=== PATIENT | female | born 1995 | race Caucasian/White ===

== ENCOUNTER 2020-08-27 06:34 | Day surgery (SDC) | payer BC ==
[~2020-08-27 06:34] MED LIST: Lactated Ringers 1,000 ML IV SCH
[2020-08-27] MEDS ORDERED: Scopolamine 1.5 MG Transdermal Patch ONE (07:05)
[2020-08-27] MEDS ORDERED: Propofol 200 MG/20 ML SDV ONE (07:06)
[2020-08-27] MEDS ORDERED: Lidocaine 2% 5 ML SDV ONE (07:09)
--- NOTE | 2020-08-27 07:26 | PCM.PREANE ---
Preanesthetic Assessment - Anesthesia/Transfusion/Family Hx Anesthesia History: Prior Anesthesia Without Reaction Transfusion History: No Prior Transfusion(s) - Review of Systems General: No Symptoms Pulmonary: No Symptoms Cardiovascular: No Symptoms Gastrointestinal: No Symptoms Neurological: No Symptoms Other: Reports: None - Physical Assessment NPO Status Date: 08/27/20 NPO Status Time: 00:00 Vital Signs: Last Vital Signs Temp 97.5 F 08/27/20 06:49 Pulse 88 08/27/20 06:49 Resp 16 08/27/20 06:49 BP 150/89 H 08/27/20 06:49 Pulse Ox 97 08/27/20 06:49 Height: 5 ft 7 in Weight: 271 lb ASA Class: 3 Mental Status: Alert & Oriented x3 Airway Class: Mallampati = 3 Dentition: Reports: Normal Dentition Thyro-Mental Finger Breadths: 3 Mouth Opening Finger Breadths: 3 ROM/Head Extension: Full Lungs: Clear to Auscultation, Normal Respiratory Effort Cardiovascular: Regular Rate, Regular Rhythm - Lab Values: Laboratory Last Values Urine HCG, Qual NEGATIVE (NEGATIVE) 08/27/20 06:50 - Allergies Allergies/Adverse Reactions: Allergies Allergy/AdvReac Type Severity Reaction Status Date / Time banana Allergy Airway Verified 08/21/20 13:30 Tightness cat dander Allergy Airway Verified 08/21/20 13:30 Tightness lactose Allergy Abdominal Verified 08/21/20 13:30 Pain Latex, Natural Rubber Allergy Rash Verified 08/21/20 13:30 mold Allergy Airway Verified 08/21/20 13:30 Tightness - Acknowledgements Anesthesia Type Planned: General Anesthesia Pt an Appropriate Candidate for the Planned Anesthesia: Yes Alternatives and Risks of Anesthesia Discussed w Pt/Guardian: Yes Pt/Guardian Understands and Agrees with Anesthesia Plan: Yes PreAnesthesia Questionnaire HEENT History: Reports: Other (See Below) Other HEENT History: wears glasses, has upper removable retainer that she only wears at night Cardiovascular History: Reports: None Respiratory History: Reports: Asthma Other Respiratory History: 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) Gastrointestinal History: Reports: Other (See Below) Other Gastrointestinal History: dysphagia to solids and liquids Genitourinary History: Reports: None [employer] History: Reports: None Musculoskeletal History: Reports: None Neurological History: Reports: Other (See Below) Other Neuro History: hx of motion sickness Psychiatric History: Reports: None Endocrine/Metabolic History: Reports: Obesity/BMI 30+ Hematologic History: Reports: None Immunologic History: Reports: None Oncologic (Cancer) History: Reports: None Dermatologic History: Reports: None - Past Surgical History Head Surgeries/Procedures: Reports: None HEENT Surgical History: Reports: Adenoidectomy, Oral Surgery, Tonsillectomy Other HEENT Surgeries/Procedures: wisdom teeth removal Cardiovascular Surgical History: Reports: None Respiratory Surgical History: Reports: None GI Surgical History: Reports: None Female Surgical History: Reports: None Endocrine Surgical History: Reports: None Neurological Surgical History: Reports: None Musculoskeletal Surgical History: Reports: None Oncologic Surgical History: Reports: None - SUBSTANCE USE Tobacco Use Status *Q: Never Tobacco User Recreational Drug Use History: No - HOME MEDS Home Medications: Home Meds Albuterol Sulfate [Albuterol Sulfate HFA] 1 - 2 puff INH Q4H PRN 08/21/20 [History] Levonorgestrel/Ethin.estradiol [Falmina-28 Tablet] 1 tab PO DAILY 08/21/20 [History] Montelukast Sodium 10 mg PO DAILY 08/21/20 [History] - CURRENT (IN HOUSE) MEDS Current Meds: Current Medications Lactated Ringer's (Ringers, Lactated) 1,000 mls @ 125 mls/hr IV ASDIRECTED [facility] Last Admin: 08/27/20 06:55 Dose: 125 mls/hr Documented by: Discontinued Medications Lidocaine (Lidocaine 2% 5 Ml Sdv) Confirm Administered Dose 5 ml .ROUTE .STK-MED ONE Stop: 08/27/20 07:10 Propofol (Propofol 200 Mg/20 Ml Sdv) Confirm Administered Dose 400 mg .ROUTE .STK-MED ONE Stop: 08/27/20 07:07 Scopolamine (Scopolamine 1.5 Mg Transdermal Patch) Confirm Administered Dose 1.5 mg .ROUTE .STK-MED ONE Stop: 08/27/20 07:06
--- NOTE | 2020-08-27 08:12 | PCM.OPNOTE ---
- General Post-Op/Procedure Note Date of Surgery/Procedure: 08/27/20 Operative Procedure(s): Esophagogastroduodenoscopy with gastric and esophageal biopsies Pre Op Diagnosis: Dysphagia. Gastroesophageal reflux disease with frequent regurgitation. Post-Op Diagnosis: Mild to moderate chronic gastritis. Distal esophagitis. Anesthesia Technique: MAC (ASA III) Primary Surgeon: Braden Ruiz Condition: Good Free Text/Narrative:: DICTATION [id number] CPT CODE [id number]
[2020-08-27] MEDS ORDERED: Lactated Ringers 1,000 ML IV SCH (08:15)
--- NOTE | 2020-08-27 08:15 | PCM.POSTAN ---
POST ANESTHESIA ASSESSMENT - MENTAL STATUS Mental Status: Alert, Oriented - VITAL SIGNS Vital Signs: Last Vital Signs Temp 97.5 F 08/27/20 06:49 Pulse 88 08/27/20 06:49 Resp 16 08/27/20 06:49 BP 150/89 H 08/27/20 06:49 Pulse Ox 97 08/27/20 06:49 - RESPIRATORY Respiratory Status: Respiratory Rate WNL, Airway Patent, O2 Saturation Stable - CARDIOVASCULAR CV Status: Pulse Rate WNL, Blood Pressure Stable - GASTROINTESTINAL GI Status: No Symptoms - POST OP HYDRATION Hydration Status: Adequate & Stable
--- NOTE | 2020-08-27 08:15 | PCM48HPAN ---
Post Anesthesia Note - EVALUATION WITHIN 48HRS OF ANESTHETIC Vital Signs in Normal Range: Yes Patient Participated in Evaluation: Yes Respiratory Function Stable: Yes Airway Patent: Yes Cardiovascular Function Stable: Yes Hydration Status Stable: Yes Pain Control Satisfactory: Yes Nausea and Vomiting Control Satisfactory: Yes Mental Status Recovered: Yes Vital Signs: Last Vital Signs Temp 97.5 F 08/27/20 06:49 Pulse 88 08/27/20 06:49 Resp 16 08/27/20 06:49 BP 150/89 H 08/27/20 06:49 Pulse Ox 97 08/27/20 06:49
--- NOTE | 2020-08-27 14:30 | OR ---
SURGEON: Braden Ruiz M.D. DATE OF PROCEDURE: 08/27/2020 OPERATION PERFORMED: Esophagogastroduodenoscopy with gastric and esophageal biopsies. PRIMARY SURGEON: Braden Ruiz M.D. ANESTHESIA: MAC. ASA CLASSIFICATION: III. PREOPERATIVE DIAGNOSES: 1. Dysphagia. 2. Chronic gastroesophageal reflux disease. 3. Choking on food. POSTOPERATIVE DIAGNOSES: 1. [id number] chronic gastritis. 2. Mild distal esophagitis. DESCRIPTION OF PROCEDURE: The patient was taken to the endoscopy room and positioned on the endoscopy table in the supine position. Time-out was called for appropriate identification of the patient and procedure. Monitored anesthesia care was provided. The gastroscope was inserted through the bite block and advanced without difficulty through the oropharynx and esophagus into the stomach, subsequently into the duodenum. Examination was now carried out in a retrograde fashion. The duodenum showed no acute inflammatory changes or ulcerations. The stomach showed [id number] gastritis. Antral biopsies were obtained to look for the presence of Helicobacter pylori. The gastroscope was then retroflexed to visualize the proximal stomach. No tumors, polyps, or ulcers were noted. The gastroscope was then straightened and slowly withdrawn. The patient had some mild esophagitis, and biopsies of the distal esophagus were obtained. The esophagus itself demonstrated good contractility. No mid or proximal lesions were identified. Specifically, no stricture was identified. As the gastroscope was then withdrawn, the vocal cords were briefly visualized and noted to move symmetrically. The gastroscope was then removed with the patient having tolerated the procedure well. She was taken to recovery room in stable condition. DEANGELO / DESI /[id number]
== END 2020-08-27 08:49 | disposition home or self-care (01) ==
LOC: MW.SDS 06:34
PROVIDERS: ATTEND Surgery
DX: K29.70 Gastritis, unspecified, without bleeding (principal); K21.00 Gastro-esophageal reflux disease with esophagitis, without bleeding; K21.9 Gastro-esophageal reflux disease without esophagitis; T17.928A Food in respiratory tract, part unspecified causing other injury, initial encounter; E73.9 Lactose intolerance, unspecified; J45.909 Unspecified asthma, uncomplicated; Z79.899 Other long term (current) drug therapy; Z91.048 Other nonmedicinal substance allergy status; Z98.890 Other specified postprocedural states
CPT/HCPCS: 43239; 81025; J2704; J7120; 00731; 88305; 88342

== ENCOUNTER 2021-03-03 12:12 | Emergency (ER) | payer BC ==
[2021-03-03 13:54] LABS: CORONAVIRUS COVID-19 NAA POSITIVE (NEGATIVE); INFLUENZA A NAA NEGATIVE (NEGATIVE); INFLUENZA B NAA NEGATIVE (NEGATIVE)
== END 2021-03-03 14:05 | disposition home or self-care (01) ==
LOC: MW.ED 12:12
DX: U07.1 COVID-19 (principal); J45.909 Unspecified asthma, uncomplicated; E66.9 Obesity, unspecified; Z68.41 Body mass index [BMI] 40.0-44.9, adult; Z91.018 Allergy to other foods; Z91.048 Other nonmedicinal substance allergy status; Z91.011 Allergy to milk products; Z91.040 Latex allergy status; Z79.899 Other long term (current) drug therapy
CPT/HCPCS: 0240U; 87651; 99283

== ENCOUNTER 2023-03-31 09:12 | Emergency (ER) | payer BC ==
[2023-03-31 09:47] LABS: APPEARANCE,URINE CLEAR; BILIRUBIN,URINE NEGATIVE (NEGATIVE); COLOR,URINE YELLOW; GLUCOSE,URINE NEGATIVE (NEGATIVE); KETONES,URINE NEGATIVE (NEGATIVE); LEUKOCYTE ESTERASE,URINE NEGATIVE (NEGATIVE); NITRITE,URINE NEGATIVE (NEGATIVE); OCCULT BLOOD,URINE NEGATIVE (NEGATIVE); PROTEIN,URINE NEGATIVE (NEGATIVE); UROBILINOGEN,URINE 0.2 EU/dL (<2.0)
== END 2023-03-31 10:29 | disposition home or self-care (01) ==
LOC: MW.ED 09:12
DX: R10.2 Pelvic and perineal pain (principal); J45.909 Unspecified asthma, uncomplicated; Z86.16 Personal history of COVID-19; Z91.018 Allergy to other foods; Z91.011 Allergy to milk products; Z91.040 Latex allergy status; Z91.048 Other nonmedicinal substance allergy status; Z79.899 Other long term (current) drug therapy
CPT/HCPCS: 81003; 99283